=== PATIENT | female | born 1980 | race Caucasian/White ===

== ENCOUNTER 2019-01-15 18:47 | Emergency (ER) | payer MEDICAID ==
[~2019-01-15] VITALS: Ht 152.4 cm; Wt 94.5 kg
[~2019-01-15 18:47] MED LIST: AMOX500C2 PO; BACTDS PO; CEPH500C PO; IBUP-1542 PO; PHEN-538 PO; PREN1TAB13 PO
[2019-01-15 19:22] VITALS: BP 125/67; PULSE 96; RESP 18; Ht 152.4 cm; Wt 94.5 kg
== END 2019-01-16 12:07 | disposition home or self-care (01) ==
LOC: E/R 18:47
DX: H92.02 Otalgia, left ear (principal)
CPT/HCPCS: 99283